=== PATIENT | female | born 1970 | race African-American/Black ===

== ENCOUNTER 2017-02-25 13:44 | Emergency (ER) | payer SELFPAY ==
[2017-02-25 15:05] LABS: Basophils % (Auto) 1.2 % (0.0-1.8); Eosinophils % (Auto) 0.8 % (0.0-4.3); Hemoglobin 9.6 gm/dl (10.1-14.3); Mean Corpuscular HGB Conc 31 % (30-34); Platelet Count 547 K/mm3 (140-440); Red Blood Count 5.22 M/mm3 (3.65-5.03); Red Cell Distribution Width 19.7 % (13.2-15.2); White Blood Count 10.8 K/mm3 (4.5-11.0)
[2017-02-25 15:08] LABS: Mean Corpuscular Hemoglobin 18 pg (28-32); Mean Corpuscular Volume 59 fl (79-97)
[2017-02-25 15:19] LABS: Partial Thromboplastin Time 27.5 Sec. (24.2-36.6)
[2017-02-25 15:27] LABS: Anion Gap 21 mmol/L; BUN/Creatinine Ratio 22; Blood Urea Nitrogen 11 mg/dL (7-17); Calcium 9.1 mg/dL (8.4-10.2); Carbon Dioxide 22 mmol/L (22-30); Glucose 87 mg/dL (65-100); Potassium 4.8 mmol/L (3.6-5.0); Sodium 138 mmol/L (137-145)
[2017-02-25 19:33] VITALS: BP 125/65
[2017-02-25] MEDS ORDERED: BABY ASPIRIN PO ONE (20:43)
--- NOTE | 2017-02-25 20:43 | Emergency Department Report ---
ED Chest Pain HPI - General Chief Complaint: Chest Pain Stated Complaint: CHEST PRESSURE,NAUSEA Time Seen by Provider: 02/25/17 20:28 Source: family Mode of arrival: Ambulatory Limitations: No Limitations - History of Present Illness Initial Comments: 47 years old [place] female with past medical history of diabetes high blood pressure hypercholesterolemia morbidly obese came in with left-sided chest pain pressure in nature that radiated to her jaw and neck. Patient stated that her pain is completely resolved now. He had similar episodes 2 times before that resolved by itself. Patient denied shortness of breath or fever. She vomited with this episode. MD Complaint: chest pain -: This morning Onset: during rest Pain Location: left chest Severity scale (0 -10): 2 Quality: pressure Consistency: intermittent re: nausea, vomting - Related Data Home Medications Medication Instructions Recorded Confirmed Last Taken Amoxicillin [Trimox CAP] 1,000 mg PO QDAY 02/25/17 02/25/17 Unknown Ferrous Sulfate [Iron] 325 mg PO BID 02/25/17 02/25/17 Unknown Metoprolol [Lopressor TAB] 50 mg PO BIDWM 02/25/17 02/25/17 Unknown Quinapril HCl [Accupril] 10 mg PO Q12H 02/25/17 02/25/17 Unknown hydrOXYZINE PAMOATE [Hydroxyzine 25 mg PO Q8H PRN 02/25/17 02/25/17 Unknown Pamoate] metFORMIN XR [Glucophage XR] 1,000 mg PO Q12H 02/25/17 02/25/17 Unknown Allergies Allergy/AdvReac Type Severity Reaction Status Date / Time No Known Allergies Allergy Unverified 02/25/17 14:07 Heart Score - HEART Score History: Moderately suspicious EKG: Non-specific Age: 45-65 Risk factors: > 3 risk factors or hx of atherosclerotic disease Troponin: < normal limit HEART Score: 5 - Critical Actions Critical Actions: 4-6 pts:12-16.6% risk of adverse cardiac event. Should be admitted ED Review of Systems ROS: Stated complaint: CHEST PRESSURE,NAUSEA Other details as noted in HPI Comment: All other systems reviewed and negative Constitutional: denies: chills, fever Respiratory: denies: cough, orthopnea, shortness of breath, SOB with exertion Cardiovascular: chest pain. denies: palpitations, dyspnea on exertion, orthopnea, edema Gastrointestinal: nausea, vomiting. denies: abdominal pain, diarrhea, constipation, hematemesis, melena, hematochezia Genitourinary: denies: urgency, dysuria, frequency Neurological: denies: headache, weakness, numbness, paresthesias ED Past Medical Hx - Past Medical History Previous Medical History?: Yes Hx Hypertension: Yes Hx Diabetes: Yes Additional medical history: Hypothyroidism - Surgical History Past Surgical History?: No - Social History Smoking Status: Never Smoker Substance Use Type: None - Medications Home Medications: Home Medications Medication Instructions Recorded Confirmed Last Taken Type Amoxicillin [Trimox CAP] 1,000 mg PO QDAY 02/25/17 02/25/17 Unknown History Ferrous Sulfate [Iron] 325 mg PO BID 02/25/17 02/25/17 Unknown History Metoprolol [Lopressor TAB] 50 mg PO BIDWM 02/25/17 02/25/17 Unknown History Quinapril HCl [Accupril] 10 mg PO Q12H 02/25/17 02/25/17 Unknown History hydrOXYZINE PAMOATE [Hydroxyzine 25 mg PO Q8H PRN 02/25/17 02/25/17 Unknown History Pamoate] metFORMIN XR [Glucophage XR] 1,000 mg PO Q12H 02/25/17 02/25/17 Unknown History ED Physical Exam - General Limitations: No Limitations General appearance: alert, in no apparent distress - Head Head exam: Present: atraumatic, normocephalic, normal inspection - Eye Eye exam: Present: normal appearance, PERRL - ENT ENT exam: Present: normal exam - Neck Neck exam: Present: normal inspection. Absent: tenderness, meningismus - Respiratory Respiratory exam: Present: normal lung sounds bilaterally. Absent: respiratory distress, wheezes, rales, rhonchi, stridor, chest wall tenderness, accessory muscle use, decreased breath sounds, prolonged expiratory - Cardiovascular Cardiovascular Exam: Present: regular rate, normal rhythm, normal heart sounds - GI/Abdominal GI/Abdominal exam: Present: soft, normal bowel sounds. Absent: distended, tenderness, guarding, rebound, rigid, mass, bruit, pulsatile mass, hernia - Extremities Exam Extremities exam: Present: normal inspection, normal capillary refill. Absent: full ROM, tenderness, pedal edema - Neurological Exam Neurological exam: Present: alert, oriented X3, CN II-XII intact, normal gait, reflexes normal. Absent: motor sensory deficit - Skin Skin exam: Present: warm, intact, normal color ED Course Vital Signs 02/25/17 02/25/17 02/25/17 14:07 18:26 18:30 Temperature 98.1 F Pulse Rate 104 H 88 94 H Respiratory 16 15 17 Rate Blood Pressure 173/100 133/79 Blood Pressure [Right] O2 Sat by Pulse 100 Oximetry 02/25/17 02/25/17 02/25/17 18:46 18:52 18:53 Temperature 98.5 F Pulse Rate 75 78 Respiratory 12 9 L 9 L Rate Blood Pressure 136/64 Blood Pressure 118/70 [Right] O2 Sat by Pulse 98 Oximetry 02/25/17 02/25/17 02/25/17 19:00 19:15 19:30 Temperature Pulse Rate 81 73 74 Respiratory 11 L 12 11 L Rate Blood Pressure 122/54 116/68 125/65 Blood Pressure [Right] O2 Sat by Pulse 100 100 99 Oximetry - Reevaluation(s) Reevaluation #1: 02/25/17 21:31 Patient does not want to be admitted and she sign AMA. I discussed with the patient and her family the needs to be admitted for further workup but both patient and her daughter want to sign AMA and they said they will follow-up with their doctor tomorrow. Patient is alert and oriented and able to make her own decision ED Medical Decision Making - Lab Data Result diagrams: 02/25/17 14:37 02/25/17 14:37 - EKG Data -: EKG Interpreted by Me EKG shows normal: sinus rhythm Rate: tachycardia - EKG Data Interpretation: no acute changes - Radiology Data Radiology results: image reviewed Chest x-ray unremarkable - Medical Decision Making Patient chest pain looks typical, given her risk factor of high blood pressure diabetes and hypercholesterolemia patient will be admitted to the hospital chest pain rule out NE. Critical care attestation.: If time is entered above; I have spent that time in minutes in the direct care of this critically ill patient, excluding procedure time. ED Disposition Clinical Impression: Chest pain Disposition: DC-07 LEFT AGAINST MED ADVICE Is pt being admited?: No Condition: Stable Instructions: Chest Pain (ED) Referrals: PRIMARY CARE, [Primary Care Provider] - 3-5 Days
--- NOTE | 2017-02-26 07:34 | XRay Report ---
AP CHEST: HISTORY: chest pain AP view of the chest demonstrates a normal mediastinal and cardiac contour with clear lungs and normal bony and soft tissue structures. IMPRESSION: Unremarkable AP chest.
== END 2017-02-25 21:05 | disposition left against medical advice (07) ==
LOC: ED 13:44
DX: R07.89 Other chest pain (principal); I10 Essential (primary) hypertension; E11.9 Type 2 diabetes mellitus without complications; E03.9 Hypothyroidism, unspecified
CPT/HCPCS: 36415; 71010; 80048; 82962; 84436; 84439; 84443; 84484; 85025; 85610; 85730; 93005; 93010; 99284